=== PATIENT | female | born 1985 | race Caucasian/White ===

== ENCOUNTER → 2017-12-01 | Day surgery (SDC) | payer BC ==
[2017-11-28 15:30] LABS: BASOPHILS % 0.4 % (0.0-1.0); EOSINOPHILS # (AUTO) 0.2 (0.0-0.4); EOSINOPHILS % 2.8 % (0.0-6.0); HEMATOCRIT 40.4 % (34.2-44.1); LYMPHOCYTES # (AUTO) 2.7 (1.0-3.2); LYMPHOCYTES % 33.3 % (18.0-39.1); MEAN CORPUSCULAR HEMOGLOBIN 30.8 pg (28-32); MEAN CORPUSCULAR HGB CONC 34.7 g/dL (31-35); MONOCYTES # (AUTO) 0.6 (0.2-0.8); MONOCYTES % 7.5 % (4.4-11.3); NEUTROPHILS # (AUTO) 4.6 (2.1-6.9); NEUTROPHILS % 55.6 % (38.7-80.0); PLATELET COUNT 258 x10e3/uL (140-360); RED BLOOD COUNT 4.54 x10e6/uL (3.6-5.1); RED CELL DISTRIBUTION WIDTH 11.9 % (11.7-14.4)
[2017-11-28 15:43] LABS: ANION GAP 19.2 mmol/L (8-16); BLOOD UREA NITROGEN 14 mg/dL (7-26); BUN/CREATININE RATIO 17 (6-25); CARBON DIOXIDE 24 mmol/L (22-29); CHLORIDE 102 mmol/L (98-107); CREATININE, SERUM 0.83 mg/dL (0.57-1.11); EST GLOMERULAR FILTRATION RATE > 60 ML/MIN (60-); GLUCOSE 95 mg/dL (74-118); POTASSIUM 4.2 mmol/L (3.5-5.1); SODIUM 141 mmol/L (136-145)
[~2017-12-01] MED LIST: ACETAMINOPHEN 1000 MG/100 ML IV ONE; ACETAMINOPHEN/CODEINE 300MG - 30MG TAB ONE; BIRTHCONTROL; BUPIVACAINE 0.5%/EPI 30 ML SDV INJ ONE; DEXAMETHASONE SOD PHOS INJ 4 MG/ML VIAL ONE; FAMOTIDINE20 MG PO; FENTANYL CITRATE/PF 100MCG/2 ML INJ ONE; GLYCOPYRROLATE INJ 1MG/ 5 ML SYR ONE; HUMALOG100 UNIT/1; JARDIANCE; KETOROLAC TROMETHAMINE 30 MG/ML VIAL ONE; LEVEMIR100 UNIT/1; LIDOCAINE HCL 2% LOCAL INJ 5 ML SDV VIAL INJ ONE; METFORMIN HCL850 MG PO; METHYLENE BLUE 1% INJ 10 ML VIAL INJ ONE; MIDAZOLAM HCL 2 MG/2 ML VIAL ONE; NEOSTIGMINE 5 MG/5ML SYR ONE; ONDANSETRON HCL INJ 2 MG/ML VIAL ONE; PANTOPRAZOLE SO40 MG PO; PRENATAL; PROPOFOL IV EMULSION 10 MG/ML 20 ML VIAL ONE; ROCURONIUM BROMIDE 10 MG/ML 5ML VIAL ONE; SEVOFLURANE INHAL SOLN 250 ML PEN BTL ONE; SYNTHROID25 MCG PO; Z.0.AMARYL2 MG; Z.0.GLUCOPHAGE500 MG; Z.0.LISINOPRIL10 MG; Z.0.OMEPRAZOLE20 MG; ZYRTEC10 M3
--- NOTE | 2017-12-01 09:54 | Operative Report ---
DATE OF PROCEDURE: December 01, 2017 PREOPERATIVE DIAGNOSES 1. Pelvic pain. 2. Menorrhagia. 3. Infertility. POSTOPERATIVE DIAGNOSES 1. Pelvic pain. 2. Menorrhagia. 3. Infertility. PROCEDURES: Laparoscopy, hydrotubation, excision of right ovarian cyst, hysteroscopy, dilatation and curettage. COMPLICATIONS: None. ESTIMATED BLOOD LOSS: Minimal. DESCRIPTION OF PROCEDURE: The patient was taken to the OR, and general anesthesia was placed. She was prepped and draped in the normal sterile fashion. She was placed in the dorsal lithotomy position. After examination under anesthesia, a HUMI self-retaining uterine manipulator was passed through the cervix into the uterine cavity and secured. Two Allis clamps were applied to the umbilicus. An infraumbilical skin incision was made with a scalpel. Subcutaneous tissue was dissected with a hemostat, and a 5-mm bladeless trocar and cannula were passed through the abdominal wall into the abdominal cavity under direct visualization. The abdomen was inflated with carbon dioxide gas. The patient was placed in Trendelenburg position. Two other ports were made on the right side of the abdomen, after making a 5-mm skin incision with a scalpel, and 5-mm bladeless trocar and cannula were passed through the abdominal wall into the abdominal cavity under direct visualization with the following findings: The uterus, tubes and ovaries look normal. Hydrotubation showed the right tube to be patent and dye freely coming out of the right tube. On the left tube, no dye came out until pressure was placed on the right tube, and dye started trickling slowly from the fimbria of the left tube. The right ovary had about a 4-cm cyst. It was excised using a LigaSure under direct visualization. Hemostasis was found to be adequate of the ovarian cyst bed. Suction and irrigation of the peritoneal cavity with warm saline. Instruments were removed from the abdomen. The abdomen was deflated. Skin incision was approximated using Dermabond. Marcaine with epinephrine was injected subcutaneously for pain management. A weighted speculum was inserted inside the vagina. The cervix was grasped with a single-tooth tenaculum. The cervix was dilated to Hegar 8. Hysteroscope was introduced inside the cavity, and good visualization showed normal uterine cavity. Sharp curettings were obtained and sent to pathology. The patient tolerated the procedure well. The lap, instrument and needle count was correct x2 at the end of the procedure. Job#: [id number]
== END | disposition home or self-care (01) ==
LOC: OR 05:44
PROVIDERS: ATTEND Obstetrics & Gynecology
DX: N83.11 Corpus luteum cyst of right ovary (principal); N97.9 Female infertility, unspecified; E11.9 Type 2 diabetes mellitus without complications; E03.9 Hypothyroidism, unspecified; J45.909 Unspecified asthma, uncomplicated; K21.9 Gastro-esophageal reflux disease without esophagitis; K44.9 Diaphragmatic hernia without obstruction or gangrene; Z88.1 Allergy status to other antibiotic agents; Z01.810 Encounter for preprocedural cardiovascular examination; Z01.812 Encounter for preprocedural laboratory examination; Z79.4 Long term (current) use of insulin
CPT/HCPCS: 36415 ×2; 58558; 58662; 80048; 82948; 84702; 85025; 88304; 88305; 93005; J1100; J1885; J2001; J2250; J2405; J3490